=== PATIENT | female | born 1990 | race African-American/Black ===

== ENCOUNTER 2017-02-05 17:27 | Emergency (ER) | payer OTHER ==
--- NOTE | 2017-02-05 17:29 | PDOC ---
History of Present Illness - General History Source: Patient Exam Limitations: No Limitations - History of Present Illness Initial Comments: 02/05/17 18:16 The patient is a 26 year old morbidly obese female with a significant past medical history of sciatica, who presents to the ED with sharp intermittent lower right back pain radiating down the right leg. Patient describes the pain as 10/10 in severity. Patient states it has been on and off for 2 years, but worse lately. Patient denies any alleviating factors. Patient denies any recent trauma. Patient denies any recent heavy lifting. Patient has been taking ibuprofen 600mg with some alleviation. Patient denies fever, chills, headache, abdominal pain, nausea, vomiting, diarrhea. Denies dysuria, frequency, urgency, hematuria. Past surgical history: 2 c-sections. <Galindo Ware - Last Filed: 02/05/17 18:16> - General History Source: Patient Exam Limitations: No Limitations <Jasmyne Lafleur - Last Filed: 02/06/17 19:37> - General Chief Complaint: Pain Stated Complaint: RIGHT LEG PAIN FEELS LIKE A MUSCLE PULL Past History <Galindo Ware - Last Filed: 02/05/17 18:16> <Jasmyne Lafleur - Last Filed: 02/06/17 19:37> - Past Medical History Allergies/Adverse Reactions: Allergies Allergy/AdvReac Type Severity Reaction Status Date / Time No Known Allergies Allergy Unverified 02/05/17 17:28 Home Medications: Ambulatory Orders Ibuprofen [Motrin -] 600 mg PO TID PRN #21 tablet 02/05/17 Lidocaine 5% Patch [Lidoderm Patch -] 1 patch TP DAILY PRN #30 patch 02/05/17 Methocarbamol [Robaxin -] 500 mg PO TID PRN #21 tablet 02/05/17 Review of Systems - Review of Systems Able to Perform ROS?: Yes Comments:: 02/05/17 18:16 GENERAL/CONSTITUTIONAL: No: fever, chills, weakness, loss of appetite. HEAD, EYES, EARS, NOSE AND THROAT: No: change in vision, ear pain, discharge, sore throat, throat swelling. CARDIOVASCULAR: No: chest pain, lightheadedness, palpitations, syncope RESPIRATORY: No: cough, shortness of breath, wheezing, hemoptysis, stridor. GASTROINTESTINAL: No: nausea, vomiting, abdominal cramping, diarrhea, rectal bleeding, constipation. GENITOURINARY: No: dysuria, hematuria, frequency, urgency, flank pain. MUSCULOSKELETAL: + lower right back pain radiating down the right leg. No: neck pain, joint pain, SKIN AND BREASTS: No: lesions, pallor, rash or easy bruising. NEUROLOGIC: No: headache, vertigo, paresthesias, weakness ENDOCRINE: No: unexplained weight gain or loss HEMATOLOGIC/LYMPHATIC: No: anemia, easy bleeding, swelling nodes <Galindo Ware - Last Filed: 02/05/17 18:16> *Physical Exam - Vital Signs Last Vital Signs Temp Pulse Resp BP Pulse Ox 98.4 F 84 18 112/67 99 02/05/17 17:28 02/05/17 17:28 02/05/17 17:28 02/05/17 17:28 02/05/17 17:28 - Physical Exam Comments: 02/05/17 18:17 See MDM. <Galindo Ware - Last Filed: 02/05/17 18:16> - Physical Exam General Appearance: Yes: Nourished HEENT: positive: EOMI, ANDREA, Normal Voice Respiratory/Chest: positive: Lungs Clear, Normal Breath Sounds. negative: Respiratory Distress Cardiovascular: positive: Regular Rhythm, Regular Rate, S1, S2 Gastrointestinal/Abdominal: positive: Normal Bowel Sounds, Flat, Soft Musculoskeletal: positive: Normal Inspection, Other (PLease see MDM) Neurologic: positive: brazer helper induction II-XII NML intact, Fully Oriented, Alert, Normal Mood/ Affect, Normal Response, Motor Strength 5/5 <Jasmyne Lafleur - Last Filed: 02/06/17 19:37> ED Treatment Course - Medications Given in the ED: ED Medications Discontinued Medications Generic Name Dose Route Start Last Admin Trade Name Freq PRN Reason Stop Dose Admin Cyclobenzaprine HCl 10 mg 02/05/17 17:48 02/05/17 17:54 Flexeril - PO 02/05/17 17:49 10 mg ONCE ONE Administration Ibuprofen 600 mg 02/05/17 17:48 02/05/17 17:54 Motrin - PO 02/05/17 17:49 600 mg ONCE ONE Administration <Galindo Ware - Last Filed: 02/05/17 18:16> Medical Decision Making - Medical Decision Making 02/05/17 17:28 A portion of this note was documented by scribe services under my direction. I have reviewed the details of the note, within reason, and agree with the documentation with the following case summary and management plan written by me. Nursing documentation reviewed and incorporated into medical decision making 02/05/17 17:59 THis is an otherwise healthy 26 yo F who presents to the ER with a complaint of right leg and back pain Pt states the pain feels like a muscle pull Pain is 10/10 There is some pain which she describes as bearable in the lower back There is more significant pain which radiates down the right leg She has sustained no trauma in the past 2 weeks which would account for her increased pain She states that her symptoms began actually approximately 1.5 years ago. Her pain is waxing and waning Over the past 2 weeks, however, the pain has been unbearable She denies galvan in her flanks She denies fevers or chills She denies rash She denies IVDU She denies history of cancer She denies direct trauma to the back She denies bowel or bladder in continence she works as a Nurse's Aid Denies work related trauma Pt believes this is related to an epidural which she had in 201402/05/17 18:04 On exam: No evidence of kyphosis No evidence of scoliosis Pt is not able to bend forward No midline tenderness No Paraspinal tenderness (+) straight leg raise (+) femoral stretch test (L2-L4) Motor Intact: L4 - Kicking out L5 - heel walking intact but --> right leg pain S1 - walking on toes intact Sensation Intact: L4 - lateral thigh L5 - space between 1st and 2nd toe S1 - lateral aspect of foot Will discharge to home Will ask pt to follow up with Dr Suero next week or Ortho Will ask pt to take Motrin, Robaxin and Lidoderm patches for pain Return to the ER for any other concerns or complaints <Jasmyne Lafleur - Last Filed: 02/06/17 19:37> *DC/Admit/Observation/Transfer - Attestations Scribe Attestion: 02/05/17 18:17 Documentation prepared by Galindo Ware, acting as neuropsychology medical consultant for Jasmyne Lafleur MD. <Galindo Ware - Last Filed: 02/05/17 18:16> - Discharge Dispostion Admit: No <Jasmyne Lafleur - Last Filed: 02/06/17 19:37> Diagnosis at time of Disposition: Back pain with sciatica - Discharge Dispostion Disposition: HOME Condition at time of disposition: Stable - Prescriptions Prescriptions: Lidocaine 5% Patch [Lidoderm Patch -] 1 patch TP DAILY PRN #30 patch PRN Reason: Pain Ibuprofen [Motrin -] 600 mg PO TID PRN #21 tablet PRN Reason: Pain Methocarbamol [Robaxin -] 500 mg PO TID PRN #21 tablet PRN Reason: Pain - Referrals Referrals: Bruce Suero MD [Staff Physician] - Mariano Zhu MD [Staff Physician] - - Patient Instructions Printed Discharge Instructions: DI for Back Spasm, DI for Back Strain or Sprain , DI for Low Back Pain, DI for Back Pain With Sciatica, Support Garment May Reduce Back Pain Discomfort During Additional Instructions: Ms. Pinzon Thank you for coming in to the ER today Please be sure to follow up with the Neurologist (Dr. Antunez) He will see you this week Please take medications as prescribed Please return to the ER for any other concerns or complaints - Post Discharge Activity Work/School Note: Back to Work
[2017-02-05 17:42] VITALS: BP 112/67; PULSE 84; TEMP 98.4; BMI 36.7
[2017-02-05] MEDS ORDERED: IBUPROFEN 600 MG TABLET (FP) PO ONE ×2 (17:48→17:50)
[2017-02-05] MEDS ORDERED: CYCLOBENZAPRINE HCL 10 MG TABLET (FP) PO ONE (17:48)
[2017-02-05] MEDS ORDERED: METHOCARBAMOL 500 MG TABLET PO ONE (17:48)
[2017-02-05] MEDS ORDERED: CYCLOBENZAPRINE HCL 10 MG TABLET (FP) ONE (17:50)
== END 2017-02-05 18:36 | disposition home or self-care (01) ==
LOC: FER 17:27
DX: M54.30 Sciatica, unspecified side (principal); E66.01 Morbid (severe) obesity due to excess calories; Z68.36 Body mass index [BMI] 36.0-36.9, adult
CPT/HCPCS: 99282-25